=== PATIENT | female | born 1965 | race Caucasian/White ===

== ENCOUNTER 2018-09-17 03:23 | Emergency (ER) | payer BC, OTHER ==
[~2018-09-17] VITALS: Ht 154.9 cm; Wt 64.0 kg
[~2018-09-17 03:23] MED LIST: celexa; premarin; synthroid
[2018-09-17] MEDS ORDERED: LIDOCAINE 1% W/EPINEPHRINE 20 ML VIAL INJ STA (03:58)
[2018-09-17] MEDS ORDERED: ONDANSETRON HCL 4 MG ORAL DISINTEGRATING TAB PO ONE (04:15)
[2018-09-17] MEDS ORDERED: KETOROLAC TROMETHAMINE 30 MG/ML VIAL IV STA (04:25)
[2018-09-17] MEDS ORDERED: ONDANSETRON HCL INJ 2MG/ML 2ML 2 MG/ML VIAL IV ONE (04:30)
[2018-09-17] MEDS ORDERED: SODIUM CHLORIDE 0.9% 1000 ML BAG IV ONE (04:30)
== END 2018-09-17 05:25 | disposition home or self-care (01) ==
LOC: FSED 03:23
DX: L02.31 Cutaneous abscess of buttock (principal); F41.9 Anxiety disorder, unspecified; F32.9 Major depressive disorder, single episode, unspecified
CPT/HCPCS: 10061; 87071; 87205; 99283; J7030